=== PATIENT | female | born 1980 | race Two or more races ===

== ENCOUNTER 2018-05-04 11:00 | Emergency (ER) | payer OTHER ==
[2018-05-04] MEDS ORDERED: PROPARACAINE 0.5% OPHTH DROPS 15 ML LEFTEYE STA (12:08)
[2018-05-04] MEDS ORDERED: ERYTHROMYCIN OPHTH OINT 1 GM TUBE LEFTEYE STA (12:16)
--- NOTE | 2018-05-04 12:18 | ED Physician Documentation ---
PD HPI OPHTHO - Stated complaint Stated Complaint: LT EYE/BLURRED VISION/PX - Chief complaint Chief Complaint: Heent - History obtained from History obtained from: Patient - History of Present Illness Timing - details: Still present Contributing factors: Wears glasses, Other (chemical exposure, perfume.) Similar symptoms before: Has not had sx before - Additional information Additional information: The patient is a 37-year-old female who presents with redness and blurry vision of her left eye. 6 days ago when applying perfume, some of the chemical was spritzed into her left eye. Over the next 3 days the irritation in her eye improved. However yesterday the irritation flared, and she has developed redness and blurring of her left eye. She normally wears glasses. She denies headache, nausea or vomiting. She has no history of similar symptoms in the past. 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 - Present Medications Home Medications: Ambulatory Orders Medication Instructions Recorded Confirmed Cetirizine [ZyrTEC] 10 mg DAILY 02/15/14 10/14/14 Amoxicillin 500 mg PO TID #15 tablet 10/14/14 Dexamethasone [Decadron] 4 mg PO DAILY #5 tablet 10/14/14 Meclizine [Antivert] 25 mg PO Q6H PRN #20 tablet 10/14/14 - Allergies Allergies/Adverse Reactions: Allergies Allergy/AdvReac Type Severity Reaction Status Date / Time No Known Drug Allergies Allergy Verified 05/04/18 11:17 - Social History Does the pt smoke?: No Smoking Status: Never smoker Does the pt drink ETOH?: Yes Does the pt have substance abuse?: No - Immunizations Immunizations are current?: Yes PD ED PE NORMAL - Vitals Vital signs reviewed: Yes (Mild hypertension initially.) - General General: Alert and oriented X 3, Well developed/nourished - HEENT HEENT: Atraumatic, PERRL, EOMI, Pharynx benign, Other (Left conjunctiva is in jected appearing. Fluorescein stain and blue light exam reveal no evidence of corneal abrasion or foreign body. Anterior chamber appears clear.) - Neck Neck: Supple, no meningeal sign, No adenopathy - Respiratory Respiratory: No respiratory distress - Derm Derm: No rash - Neuro Neuro: Alert and oriented X 3, Normal speech Results - Vitals Vitals: Oxygen O2 Source Room air PD MEDICAL DECISION MAKING - ED course Complexity details: re-evaluated patient, considered differential, d/w patient ED course: The patient's presentation is most consistent with conjunctivitis of the left eye. There is no evidence of corneal abrasion or foreign body. Visual acuity is intact. Treatment in the emergency department included administration of erythromycin ophthalmic ointment. I discussed with her the expected course of illness, topical antibiotic treatment and outpatient follow-up, as well as potentially worrisome signs or symptoms that should prompt reevaluation in the emergency department. - Sepsis Event Vital Signs: Oxygen O2 Source Room air Departure - Departure Disposition: 01 Home, Self Care Clinical Impression: Conjunctivitis Qualifiers: Conjunctivitis type: acute Acute conjunctivitis type: unspecified Laterality: left Qualified Code(s): H10.32 - Unspecified acute conjunctivitis, left eye Condition: Stable Instructions: ED Conjunctivitis Nonspecific Follow-Up: GUSTAVO Grant [Provider Group] Comments: Use erythromycin ophthalmic ointment 4 times daily for the next 3 days. You can use Tylenol or ibuprofen if needed for discomfort. Follow up with your primary physician within 1 week. Call to schedule appointment. Return to the emergency department if increasing redness of your eye, pain in the eye, or otherwise worsening symptoms. Discharge Date/Time: 05/04/18 12:31
[2018-05-04 12:30] VITALS: BP 120/87
== END 2018-05-04 12:31 | disposition home or self-care (01) ==
LOC: ED 11:00
DX: H10.32 Unspecified acute conjunctivitis, left eye (principal)
CPT/HCPCS: 99283; J3490

== ENCOUNTER 2019-07-13 12:28 | Outpatient (CLI) | payer OTHER ==
[2019-07-13 13:00] LABS: BASOPHILS % (AUTO) 0.5 %; EOSINOPHILS # (AUTO) 0.1 10^3/uL (0.0-0.7); EOSINOPHILS % (AUTO) 1.7 %; HGB - HEMOGLOBIN 9.9 g/dL (12.0-16.0); LYMPHOCYTES # (AUTO) 1.7 10^3/uL (1.5-3.5); LYMPHOCYTES % (AUTO) 29.6 %; MEAN CORPUSCULAR HGB CONC 29.5 g/dL (32.0-36.0); MEAN CORPUSCULAR VOLUME 74.8 fL (81.0-99.0); MONOCYTES # (AUTO) 0.6 10^3/uL (0.0-1.0); MONOCYTES % (AUTO) 10.5 %; NEUTROPHILS # (AUTO) 3.3 10^3/uL (1.5-6.6); NEUTROPHILS % (AUTO) 57.4 %; PLT - PLATELET COUNT 400 10^3/uL (130-450); RED BLOOD COUNT 4.49 10^6/uL (4.20-5.40); RED CELL DISTRIBUTION WIDTH 20.2 % (12.0-15.0); WHITE BLOOD COUNT 5.7 x10^3/uL (4.8-10.8)
[2019-07-13 13:12] LABS: HCG UR QUAL NEGATIVE
== END 2019-07-13 12:29 | disposition home or self-care (01) ==
LOC: LAB 12:28
PROVIDERS: ATTEND Obstetrics & Gynecology
DX: Z01.818 Encounter for other preprocedural examination (principal); D25.9 Leiomyoma of uterus, unspecified; N92.0 Excessive and frequent menstruation with regular cycle
CPT/HCPCS: 36415; 81025; 85025; 86850; 86900; 86901

== ENCOUNTER 2019-07-15 07:38 | Inpatient (IN) | payer OTHER ==
[~2019-07-15 07:38] MED LIST: BUPIVACAINE 0.25% PF 30 ML VIAL ONE
[2019-07-15] MEDS ORDERED: ACETAMINOPHEN 1,000 MG/100 ML 100 ML IV ONE (07:41)
[2019-07-15] MEDS ORDERED: CEFAZOLIN SODIUM IN 0.9 % NACL 2 GM/100 ML BAG IV ONE (07:41)
[2019-07-15 08:12] LABS: HCG UR QUAL NEGATIVE
[2019-07-15] MEDS ORDERED: LACTATED RINGERS 1,000 ML IV ONE ×4 (08:20→15:34)
--- NOTE | 2019-07-15 08:54 | ANESTHESIA ---
Pre-Anesthesia VS, & Labs - Diagnosis Uterine fibroids - Procedure Lap hysterectomy, bilateral salpingectomy Vital Signs: Temp Pulse Resp BP Pulse Ox 36.1 C L 86 18 117/77 100 07/15/19 07:55 07/15/19 07:55 07/15/19 07:55 07/15/19 07:55 07/15/19 07:55 Height 5 ft 3 in Weight (kg) 85.1 kg Body Mass Index 29.2 - NPO >8 hours (Sip water at 0530) - Is Patient ?: No - Lab Results Lab results reviewed: Yes Home Medications and Allergies Home Medications: Ambulatory Orders ALPRAZolam [Alprazolam] 0.5 mg PO 06/19/19 Adalimumab [Humira] 40 mg SQ 06/19/19 Ferrous Sulfate 325 mg PO BID 06/19/19 ALPRAZolam [Alprazolam] 0.5 mg PO 06/19/19 Adalimumab [Humira] 40 mg SQ 06/19/19 Ferrous Sulfate 325 mg PO BID 06/19/19 Allergies/Adverse Reactions: Allergies Allergy/AdvReac Type Severity Reaction Status Date / Time No Known Drug Allergies Allergy Verified 06/19/19 13:29 Anes History & Medical History - Anesthetic History Anesthesia Complications: reports: No previous complications Family history of Anesthesia Complications: Denies Family history of Malignant Hyperthermia: Denies - Medical History Cardiovascular: reports: None Pulmonary: reports: None Gastrointestinal: reports: None Urinary: reports: Other Neuro: reports: None Musculoskeletal: reports: None Endocrine/Autoimmune: reports: Other Blood Disorders: reports: None Skin: reports: None Smoking Status: Former smoker Psychosocial: reports: No issues indicated - Surgical History Gynecologic: section, Dilation and currettage, Tubal ligation Exam General: Alert, Oriented x3, Cooperative Dental: WNL Mouth Opening: Greater than 4 Fingerbreadths Neck Mobility: Normal Mallampati classification: I Thyromental Distance: greater than 6 cm Respiratory: Lungs clear Cardiovascular: Regular rate Neurological: Normal speech Mental/Cognitive Status: Alert/Oriented X3 Cognitive Status: Within normal limits Plan Anesthesia Type: General Consent for Procedure(s) Verified and Reviewed: Yes Code Status: Attempt Resuscitation ASA classification: 2-Mild systemic disease Is this case an emergency?: No
[2019-07-15 13:31] LABS: HGB - HEMOGLOBIN 7.9 g/dL (12.0-16.0); MEAN CORPUSCULAR HEMOGLOBIN 21.8 pg (27.0-31.0); MEAN CORPUSCULAR HGB CONC 29.3 g/dL (32.0-36.0); MEAN CORPUSCULAR VOLUME 74.6 fL (81.0-99.0); MEAN PLATELET VOLUME 9.2 fL (7.9-10.8); RED BLOOD COUNT 3.62 10^6/uL (4.20-5.40); RED CELL DISTRIBUTION WIDTH 20.4 % (12.0-15.0); WHITE BLOOD COUNT 8.9 x10^3/uL (4.8-10.8)
[2019-07-15] MEDS ORDERED: ONDANSETRON 4 MG/2 ML VIAL IVP PRN (14:37)
[2019-07-15] MEDS ORDERED: oxyCODONE 5 MG TABLET PO PRN (14:37)
[2019-07-15] MEDS: HYDROmorphone 1 MG/ML CARPUJECT ONE ×3 (14:46→15:17)
--- NOTE | 2019-07-15 14:51 | OPERATIVE REPORT ---
Operative Report - General Admit Date: 07/15/19 Planned Procedure: total laparoscopic hysterectomy, bilateral salpingectomy, cystoscopy Pre-Op Diagnosis: abnormal uterine bleeding, leiomyoma Procedure Performed: diagnostic laparoscopy, lysis of adhesions, total abdominal hysterectomy, cystoscopy Post Op Diagnosis: same as above - Procedure Note Primary Surgeon: Michael Garner Secondary Surgeon: Ishmael Avitia Anesthesia Technique: General ET tube Pathology: uterus with cervix IV Fluids (mL): 1,400 Estimated Blood Loss (mL): 600 Urine Output (mL): 400 Indications: abnormal uterine bleeding Findings: Grossly normal liver edge and bowel. Large adhesion of omentum to anterior abdominal wall across most of pelvis, dissected down laparoscopically. Adhesion of bladder to midway up anterior uterus. Simple appearing cyst on left ovary, normal right ovary. Evidence of prior tubal ligation with short remaining tubal segments at the cornu. Large anterior fibroid extending anterior-posterior dimensions of the uterus, filling pelvis, making uterus difficult to manipulate and obscuring visualization of posterior cul de sac. Uterus, cervix and remaining tubal segments removed through pfannenstiel incision due to inability to complete surgery laparoscopically with enlarged uterus. Cystoscopy revealed intact bladder mucosa and brisk bilateral ureteral jets. Complications: conversion to laparotomy due to anatomic limitations to completing surgery laparoscopically - Other Other Information/Narrative: After informed consent was obtained, the patient was taken to the operating room, where general anesthesia was administered without difficulty. Exam under anesthesia performed, revealing a bulky anteverted uterus with minimal descent or mobility. The patient was prepped and draped in normal sterile fashion in the dorsal lithotomy position. Surgical time out was performed. A speculum was placed in the vagina and the anterior cervix was grasped with a single tooth tenaculum. The V-care manipulator was then advanced to the fundus and the tip balloon inflated with 8 ml of air. The colpotomy cup was advanced around the cervix and locked into place. Montiel catheter was placed into the bladder, draining clear yellow urine. Attention was directed to the abdomen. After confirming a gastric tube was placed and the bed was flat, 0.25% marcaine was injected at the umbilicus and a 5mm port was inserted through a horizontal skin incision under direct visualization with the laparoscope. The abdomen was partially insufflated with <5mmHg initial insufflation pressure which was increased to achieve complete pneumoperitoneum at 15 mmHg. A survey of the abdominal cavity revealed no bowel injury under the entry site, normal liver edge and gallbladder. A large adhesion of omentum to the anterior abdominal wall was noted covering most of the mid- abdomen and obscuring view of the pelvis. Two lateral 5 mm ports were then placed under direct visualization. The Ligasure was introduced and used to gradually divide the omental adhesion from the anterior uterine wall. Hemostasis was maintained. The uterus was noted to have a large subserosal fibroid at the anterior uterus; this made manipulation of the uterus to expose the posterior cul de sac difficult. Fallopian tubes were noted to be transected a few centimeters from the cornua from prior tubal ligation. The bilateral ovaries were normal; a simple cyst was noted on the left. Due to inability to manipulate the uterus allowing exposure of the posterior cul de sac, the decision was made to convert to laparotomy. A pfannenstiel incision was made through her pre-existing scar. This was carried with cautery through the subcutaneous tissue to the level of the fascia, which was scarred bilaterally. The fascia was dissected sharply off the underlying rectus muscles, caudad and cephalad. The rectus muscles were then in the midline and the peritoneum was entered sharply. The peritoneal incision was extended to allow visualization of the uterus. A medium Angel Luis retractor was placed, and the bowels were gently packed cephalad with moist laparotomy sponges. The uterus was grasped with at each cornua with a Ranjit clamp and exteriorized. The round ligament on the right was fixated with a stitch, elevated, and divided with cautery. The leaves of the broad ligament were opened and dissection was carried anteriorly to create a bladder flap. An adhesion of the bladder to midway up the anterior uterus was noted and taken down sharply. The bladder was cautiously via sharp dissection. The same procedure was repeated on the left. The posterior peritoneum was gently dissected and the ureter was identified on each side. The utero-ovarian vessels on the right were identified and a window made in the broad ligament allowing these vessels to be secured with a Ranjit cl amp and transected. The pedicle secured with a tie on a pass followed by a stitch on each side, allowing the ovaries to fall away from the uterus. Good hemostasis was maintained on these pedicles. The uterine artery on each side was skeletonized, clamped, and divided. The cardinal and uterosacral ligaments on each side were cut. The bladder was gently rolled back from the cervix. Curved zeppelin clamps were placed across the top of the vagina immediately beneath the cervix. The uterus and cervix were then dissected out sharply. The specimen was passed off to send to pathology. Three figure of eight sutures were placed in the midline of the cuff which was not fully incorporated into the zeppelin clamps. A running double layered suture was then placed over the corners of the cuff. An oozing vessel in the bladder flap was secured with a figure of eight of 3-0 vicryl. Irrigation with sterile water was undertaken. Good hemostasis was observed. Attention was turned to cystoscopy. Water was run through the 30 degree cystoscope, which was gently advanced under direct visualization into the bladder, which was then filled. Brisk ureteral jets were noted bilaterally; no injury was noted to the bladder mucosa. The cystoscope was withdrawn and a montiel was replaced. Attention was returned to the abdomen. Some oozing was noted from the peritoneum posterior to the vaginal cuff, and this was secured with a running locked suture of 3-0 vicryl. Gel foam was placed over the cuff. All pedicles remained hemostatic. A defect was noted in the fascia overlying the cephalad portion of the right rectus muscle; this was was reapproximated with a box suture of 2-0 vicryl. The fascia was infiltrated with 20 ml of 0.25% marcaine. The fascial incision was then closed a running unlocked suture of 1 PDS. 2 The subcutaneous space was approximated with a deep running layer of 2-0 vicryl, followed by four more superficial interrupted sutures. The skin was reapproximated with a running subc uticular suture of 4-0 monocryl. Each port site was closed a single buried suture of 4-0 monocryl. Steristrips and a pressure dressing were placed over the incision; dermabond skin adhesive was placed over the port sites. All sponge and instrument counts were correct. The patient was awoken and extubated. She was taken to the PACU in stable condition.
[2019-07-15] MEDS ORDERED: KETOROLAC 30 MG/ML VIAL IVP SCH (15:00)
[2019-07-15] MEDS ORDERED: HYDROmorphone 0.5 MG/0.5 ML SYRINGE ONE ×2 (15:06→15:16)
[2019-07-15] MEDS: HYDROmorphone 0.5 MG/0.5 ML SYRINGE IVP PRN ×2 (15:07→21:04)
[2019-07-15] MEDS: LACTATED RINGERS 1,000 ML IV SCH (15:54)
[2019-07-15] MEDS: ACETAMINOPHEN 500 MG TABLET PO SCH ×2 (16:33→21:55)
[2019-07-15] MEDS ORDERED: fentaNYL 100 MCG/2 ML VIAL IVP ONE (17:19)
[2019-07-15] MEDS ORDERED: MIDAZOLAM 2 MG/2 ML VIAL IVP ONE (17:19)
[2019-07-15] MEDS ORDERED: ROCURONIUM 50 MG/5 ML VIAL IVP ONE (17:19)
[2019-07-15] MEDS ORDERED: GLYCOPYRROLATE 1 MG/5 ML VIAL IVP ONE (17:19)
[2019-07-15] MEDS ORDERED: DEXAMETHASONE 4 MG/ML VIAL IVP ONE (17:19)
[2019-07-15] MEDS ORDERED: NEOSTIGMINE 1 MG/1 ML 10 ML MDV IVP ONE (17:19)
[2019-07-15] MEDS: FERROUS SULFATE 325 MG TABLET PO SCH (17:25)
[2019-07-15] MEDS: KETOROLAC 30 MG/ML VIAL IVP SCH (19:12)
[2019-07-15] MEDS ORDERED: SODIUM CHLORIDE FLUSH 0.9% 10 ML SYRINGE ONE (19:20)
[2019-07-15] MEDS ORDERED: FERROUS SULFATE 325 MG TABLET PO SCH (21:00)
[2019-07-15] MEDS: DOCUSATE SODIUM 100 MG CAPSULE PO SCH (21:55)
[2019-07-15] MEDS: ASCORBIC ACID CHEW 500 MG TABLET PO SCH (21:55)
[2019-07-16] MEDS: KETOROLAC 30 MG/ML VIAL IVP SCH ×3 (00:42→12:53)
[2019-07-16] MEDS: HYDROmorphone 0.5 MG/0.5 ML SYRINGE IVP PRN (00:42)
[2019-07-16] MEDS: LACTATED RINGERS 1,000 ML IV SCH (00:53)
[2019-07-16] MEDS: ACETAMINOPHEN 500 MG TABLET PO SCH ×3 (02:26→16:54)
--- NOTE | 2019-07-16 07:04 | PROVIDER PROGRESS NOTE ---
Subjective - Prog Note Date Prog Note Date: 07/16/19 Prog Note Time: 07:00 - Subjective Pt reports feeling: Improved (Pt is doing well. Reports pain improved this AM. Overnight required dilaudid for pain unrelieved by roxicodone and then had emesis shortly after receiving dilaudid. Reports no current nausea, feeling hungry this AM. Only tried fluids and crackers yesterday. Not yet ambulating. Voiding to montiel. Not yet passing flatus.) Current Medications - Current Medications Current Medications: 1. Toradol 2. Tylenol 3. Roxicodone 4. Dilaudid IV prn 5. Colace 6. Ferrous sulfate BID 7. Ascorbic Acid BID Objective - Vital Signs/Intake & Output Vital Signs: Vital Signs x48h Temp Pulse Resp BP Pulse Ox 07/16/19 05:29 37.3 C 79 18 126/70 100 07/16/19 00:57 37 C 70 20 136/73 H 100 Intake & Output: Intake & Output 07/13/19 07/14/19 07/15/19 07/16/19 23:59 23:59 23:59 23:59 Intake Total 2050 898.333 Output Total 2200 1725 Balance -150 -826.667 - Objective General Appearance: positive: No acute distress, Alert Respiratory: positive: No respiratory distress Abdomen: positive: No distention, Other (soft, nondistended, appropriately tender laura-incision with no rebound or guarding. Dressing in place over pfannenstiel, no strike-through. Dermabond skin adhesive in place over l/s port sites.) Skin: positive: Color nml, Warm, Dry Extremities: positive: Non-tender Neurologic/Psychiatric: positive: Oriented x3 - Lab Results Fish Bones: 07/15/19 13:20 Other Labs: Lab Results x24hrs 07/15/19 07/15/19 Range/Units 13:20 08:00 WBC 8.9 (4.8-10.8) x10^3/uL RBC 3.62 L (4.20-5.40) 10^6/uL Hgb 7.9 L (12.0-16.0) g/dL Hct 27.0 L (37.0-47.0) % MCV 74.6 L (81.0-99.0) fL MCH 21.8 L (27.0-31.0) pg MCHC 29.3 L (32.0-36.0) g/dL RDW 20.4 H (12.0-15.0) % Plt Count 333 (130-450) 10^3/uL MPV 9.2 (7.9-10.8) fL Ur Specific [place] >=1.030 H (1.002-1.030) Urine HCG, Qual NEGATIVE - Other Results/Comments Other Results/Comments: AM CBC pending Assessment/Plan - Problem List (1) Postoperative state Impression: 38 yo woman POD#1 s/p dx l/s, lysis of adhesions, MARI, cystoscopy. Recovering well. VS wnl, UOP 1.9 ml/kg/h since surgery. Hct 33-->27 intraop, rpt CBC this AM pending. -Emesis overnight. Encouraged prioritizing roxicodone over IV dilaudid, zofran prior to narcotic or to iron tablets. Encouraged regular diet as tolerated this AM. -Pain control. Transition toradol to motrin today. -Post-op care. Montiel catheter out this AM once ambulating. -Dispo. If meets due to void, tolerating regular diet and passing flatus, may go home this evening. Otherwise, home tomorrow.
[2019-07-16] MEDS: ASCORBIC ACID CHEW 500 MG TABLET PO SCH (08:22)
[2019-07-16] MEDS: DOCUSATE SODIUM 100 MG CAPSULE PO SCH (08:23)
[2019-07-16] MEDS: FERROUS SULFATE 325 MG TABLET PO SCH (08:23)
[2019-07-16] MEDS ORDERED: SODIUM CHLORIDE FLUSH 0.9% 10 ML SYRINGE ONE (12:49)
--- NOTE | 2019-07-16 15:47 | DISCHARGE SUMMARY ---
Discharge Summary Admit Date: 07/15/19 Discharge Date: 07/16/19 Discharging Provider: Michael Garner Code Status: Attempt Resuscitation Condition at Discharge: Good Discharge Disposition: 01 Home, Self Care - DIAGNOSES Admission Diagnoses: abnormal uterine bleeding Discharge Diagnoses with Status of Each Condition: 1. abnormal uterine bleeding, s/p hysterectomy 2. anemia, postoperative, treated - HPI History of Present Illness: Ms. Gomez was admitted for planned hysterectomy due to abnormal uterine bleedi ng. - CONSULTS | PROCEDURES Consultations: none Procedures: 1. diagnostic laparoscopy 2. laparoscopic lysis of adhesions 3. total abdominal hysterectomy 4. cystourethroscopy - HOSPITAL COURSE Hospital Course: Uncomplicated. She underwent diagnostic laparoscopy with lysis of adhesions with conversion to total abdominal hysterectomy due to adhesions and uterine size. Surgery was uncomplicated. She was noted to have mild anemia preoperatively with Hct of 33 and postoperatively dropped to 27 with no symptoms of anemia. She was continued on iron and vitamin C postoperatively. On POD#1 her montiel catheter was removed and she was able to void spontaneously. At the time of discharge, she was ambulating, passing flatus, tolerating regular diet and pain was well controlled with oral medications. She was discharged home with close interval follow up. - ALLERGIES Allergies/Adverse Reactions: Allergies Allergy/AdvReac Type Severity Reaction Status Date / Time No Known Drug Allergies Allergy Verified 06/19/19 13:29 - MEDICATIONS Home Medications: Ambulatory Orders Medication Instructions Recorded Confirmed ALPRAZolam [Alprazolam] 0.5 mg PO TID PRN 06/19/19 07/16/19 Adalimumab [Humira] 40 mg SQ Q14D 06/19/19 07/16/19 Ferrous Sulfate 325 mg PO BID 06/19/19 07/15/19 Home Medications Other | Comments: 1. Ibuprofen 800 mg every 8 hours 2. Tylenol 975 mg every 6 hours 3. Roxicodone 5-10 mg every 4 hours as needed for pain 4. zofran 4 mg every 6 hours as needed for nausea (may take before iron tablet or roxicodone tablet) 5. surfak 240 mg twice daily 6. ferrous sulfate (iron) 1 tablet twice daily 7. ascorbic acid (vitamin c) 1 tablet twice daily with iron - PHYSICAL EXAM AT DISCHARGE General Appearance: positive: No acute distress Respiratory: positive: No respiratory distress Abdomen: positive: No distention Physical Exam Other/Comments: For full exam, see progress note from this AM - LABS Result Diagrams: 07/15/19 13:20 - QUALITY (Female Hip Fx Only) Was patient sent home on osteoporosis medication?: No - FOLLOW UP Follow Up: Follow up is scheduled [id number] at [address] Garner at [facility]. Please remove the bandage over your incision one week after surgery; it will be most comfortable to remove in the shower. There are small bandaids underneath the large bandage; it is okay if these fall off but otherwise please leave them in place until your follow up appointment. You may shower with the bandage in place; just let soap and water run over the abdomen, and then pat dry, do not scrub. Do not pick or scrub at the skin adhesive over your laparoscopic port sites. Do not drive for at least 2 weeks after your surgery. You should never drive if you are using prescription pain medicine and you should not drive until you feel you could react quickly in traffic. After surgery expect to have both good days and bad days as you recover. The first few days after surgery most women are sore so plan to stay at home and have someone nearby to help out. As you begin to recover gradually increase your activity. For the first 4 weeks after surgery please do not: "work out", do house work, or lift objects heavier than 10 lbs (approximately a gallon of milk). Please do not have intercourse or place anything in the vagina for 6 weeks after surgery. You may shower but do not take baths or swim. Use a stool softener for 2-4 weeks so that you do not need to strain for bowel movements. [id number] may be added for constipation. When to call the clinic ([phone]), or come to the Emergency Department: Bleeding heavier than a period, wound redness or drainage, vomiting, severe pain, fever to 100.4 or higher, inability or difficulty emptying your bladder or any other unusual symptoms. - TIME SPENT Time Spent in Discharge (Minutes): 30
[2019-07-16 15:57] VITALS: BP 132/75
[2019-07-16] MEDS ORDERED: IBUPROFEN 800 MG TABLET PO SCH (21:00)
[2019-07-27] MEDS ORDERED: ADALIMUMAB 40 MG SQ SCH (10:00)
== END 2019-07-16 18:15 | disposition home or self-care (01) | DRG 743 ==
LOC: MS2 07:38
PROVIDERS: ADMIT Obstetrics & Gynecology; ATTEND Obstetrics & Gynecology
PROC: 0UJD4ZZ Inspection of Uterus and Cervix, Percutaneous Endoscopic Approach (ICD-10-PCS; 2019-07-15)
PROC: 0DNW0ZZ Release Peritoneum, Open Approach (ICD-10-PCS; 2019-07-15)
PROC: 0DNU0ZZ Release Omentum, Open Approach (ICD-10-PCS; 2019-07-15)
PROC: 0UB70ZZ Excision of Bilateral Fallopian Tubes, Open Approach (ICD-10-PCS; 2019-07-15)
PROC: 0TJB8ZZ Inspection of Bladder, Via Natural or Artificial Opening Endoscopic (ICD-10-PCS; 2019-07-15)
PROC: 0UT90ZZ Resection of Uterus, Open Approach (ICD-10-PCS; principal; 2019-07-15 09:00)
DX: D25.1 Intramural leiomyoma of uterus (principal); D25.0 Submucous leiomyoma of uterus; N83.202 Unspecified ovarian cyst, left side; D64.9 Anemia, unspecified; R11.2 Nausea with vomiting, unspecified; E66.9 Obesity, unspecified; Z68.29 Body mass index [BMI] 29.0-29.9, adult; Z87.891 Personal history of nicotine dependence
CPT/HCPCS: 81025; 85025; 85027

== ENCOUNTER 2020-01-13 17:23 | Emergency (ER) | payer OTHER ==
[2020-01-13 17:32] VITALS: BP 140/86
[2020-01-13] MEDS ORDERED: predniSONE 20 MG TABLET PO STA (17:57)
--- NOTE | 2020-01-13 18:00 | ED Physician Documentation ---
History of Present Illness - Stated complaint Stated Complaint: FACIAL SWELLING - Chief complaint Chief Complaint: Allergic Rx - History obtained from History obtained from: Patient - History of Present Illness Timing: Today Pain level max: 0 Pain level now: 0 - Additonal information Additional information: 39-year-old female with a longstanding history of idiopathic angioedema presents to the emergency department with upper lip swelling today. She states sometimes it resolves after taking Claritin, however she took this today and it has continued. She states when that occurs that she needs steroids. No difficulty breathing. No airway involvement. nothing makes it better or worse. no new medications. No allergies. 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, Dilation and currettage, Tubal ligation - Present Medications Home Medications: Ambulatory Orders Medication Instructions Recorded Confirmed ALPRAZolam [Alprazolam] 0.5 mg PO TID PRN 06/19/19 07/16/19 Adalimumab [Humira] 40 mg SQ Q14D 06/19/19 07/16/19 Ferrous Sulfate 325 mg PO BID 06/19/19 07/15/19 predniSONE [Prednisone] 40 mg PO DAILY #10 tablet 01/13/20 - Allergies Allergies/Adverse Reactions: Allergies Allergy/AdvReac Type Severity Reaction Status Date / Time No Known Drug Allergies Allergy Verified 01/13/20 17:27 - Social History Does the pt smoke?: No Smoking Status: Never smoker Does the pt drink ETOH?: Yes Does the pt have substance abuse?: No - Immunizations Immunizations are current?: Yes PD ED PE NORMAL - Vitals Vital signs reviewed: Yes - General General: Alert and oriented X 3, No acute distress - HEENT HEENT: Moist mucous membranes, Other (Moderate swelling to the upper lip. No intraoral swelling. Normal phonation. No trismus. No wheezing. No stridor.) - Neck Neck: Supple, no meningeal sign - Cardiac Cardiac: RRR, Strong equal pulses - Respiratory Respiratory: No respiratory distress, Clear bilaterally - Abdomen Abdomen: Soft, Non tender, Non distended - Derm Derm: Warm and dry - Neuro Neuro: Alert and oriented X 3 Results - Vitals Vitals: Vital Signs - 24 hr 01/13/20 17:27 Temperature 36.5 C Heart Rate 92 Respiratory 14 Rate Blood Pressure 140/86 H O2 Saturation 99 Oxygen O2 Source Room air PD MEDICAL DECISION MAKING - ED course Complexity details: considered differential, d/w patient ED course: Patient with recurrent angioedema. Will place on steroids. No airway involvement. Patient counseled regarding signs and symptoms for which I believe and urgent re-evaluation would be necessary. Patient with good understanding of and agreement to plan and is comfortable going home at this time This document was made in part using voice recognition software. While efforts are made to proofread this document, sound alike and grammatical errors may occu r. Departure - Departure Disposition: 01 Home, Self Care Clinical Impression: Angio-edema Qualifiers: Encounter type: initial encounter Qualified Code(s): T78.3XXA - Angioneurotic edema, initial encounter Condition: Good Instructions: ED Angioedema Follow-Up: KENAN HUGHES DO [Primary Care Provider] - Prescriptions: predniSONE [Prednisone] 40 mg PO DAILY #10 tablet Comments: Use the steroids as prescribed. Return if you worsen. Discharge Date/Time: 01/13/20 18:08
== END 2020-01-13 18:08 | disposition home or self-care (01) ==
LOC: ED 17:23
DX: T78.3XXA Angioneurotic edema, initial encounter (principal)
CPT/HCPCS: 99282; 99284; J7512